=== PATIENT | female | born 1990 | race African-American/Black ===

== ENCOUNTER 2021-06-05 09:00 | Outpatient (CLI) | payer OTHER | END 2021-06-05 09:01 | disposition home or self-care (01) | LOC: DTY/OP 09:00 | PROVIDERS: ATTEND Specialist | DX: E66.01 Morbid (severe) obesity due to excess calories (principal) | CPT/HCPCS: 97802 ==

== ENCOUNTER 2021-07-30 10:52 | Outpatient (CLI) | payer OTHER | END 2021-07-30 10:53 | disposition home or self-care (01) | LOC: DTY/OP 10:52 | PROVIDERS: ATTEND Specialist | DX: E66.01 Morbid (severe) obesity due to excess calories (principal) | CPT/HCPCS: 97802 ==